=== PATIENT | male | born 1995 | race Two or more races ===

== ENCOUNTER 2019-10-02 14:28 | Emergency (ER) | payer SELFPAY ==
[~2019-10-02] VITALS: Ht 177.8 cm; Wt 59.9 kg
[2019-10-02 14:35] VITALS: BP 124/60
--- NOTE | 2019-10-02 14:35 | NUR ---
ED Nurse Note: Patient walked in to ER from home due to fever. Stated, feels so hot at home but did not checked temp. Patient c/o abdominal pain and diarrhea 2-3 days ago. Patient temp 98.1 at triage, did not take any meds today. Patient has non-labored breathing, O2 sat 98% on RA, AAO x4.
--- NOTE | 2019-10-02 14:44 | Emergency Room Report ---
History of Present Illness General Chief Complaint: Fever Source: Patient Present Illness HPI 24 YO male presents to the emergency department complaining of episodes of intermittent epigastric abdominal pain followed by diarrhea x4 days. Patient reports having hot flashes at home but denies having any measured temperature. Patient states he does not currently have pain at this time however he states when he does have an episode he rates his pain as 5 out of 10 in severity and describes cramping in nature in the epigastric area. He denies nausea or vomiting. He denies blood in the stool or black tarry stools. He denies recent travel or ill contacts with similar symptoms. He states he has been taking Tylenol and Excedrin for his symptoms which have provided him relief. Patient states that he last took medications yesterday. Denies cough, CP, SOB, or wheezing. Denies recent travel. Denies contact with persons who have tested positive for or are under investigation/quarantine for COVID-19. Allergies: Coded Allergies: No Known Allergies (Unverified , 10/02/19) COVID-19 Screening Contact w/high risk pt: No Recent Travel to affected area: No Experienced COVID-19 symptoms?: Yes COVID-19 symptoms experienced: Fever (T>100.4F or >38C) Patient History Past Medical History: see triage record Past Surgical History: none Pertinent Family History: none Reviewed Nursing Documentation: PMH: Agreed; PSxH: Agreed Nursing Documentation-PMH Past Medical History: No Stated History Review of Systems All Other Systems: negative except mentioned in HPI Physical Exam Vital Signs Date Time Temp Pulse Resp B/P (MAP) Pulse Ox O2 Delivery O2 Flow Rate FiO2 10/02/19 14:18 98.1 82 16 124/60 (81) 98 Room Air Sp02 EP Interpretation: reviewed, normal General Appearance: no apparent distress, alert, GCS 15, non-toxic Head: normocephalic, atraumatic Eyes: bilateral eye normal inspection, bilateral eye PERRL ENT: hearing grossly normal, normal voice Neck: full range of motion Respiratory: chest non-tender, lungs clear, normal breath sounds, no respiratory distress, no wheezing, speaking full sentences Cardiovascular #1: regular rate, rhythm, no edema Gastrointestinal: normal bowel sounds, non tender, soft, no peritonitis, non- distended, no guarding Rectal: deferred Musculoskeletal: normal range of motion, gait/station normal, non-tender Neurologic: alert, motor strength/tone normal, oriented x3, sensory intact, responsive, speech normal Psychiatric: judgement/insight normal Skin: normal color Medical Decision Making PA Attestation Dr. Poon is my supervising Physician whom patient management has been discussed with. Diagnostic Impression: Primary Impression: Gastritis Qualified Codes: K29.00 - Acute gastritis without bleeding Additional Impression: Diarrhea Qualified Codes: R19.7 - Diarrhea, unspecified ER Course 24 YO male presents to the emergency department complaining of episodes of intermittent epigastric abdominal pain followed by diarrhea x4 days. Patient reports having hot flashes at home but denies having any measured temperature. Patient states he does not currently have pain at this time however he states when he does have an episode he rates his pain as 5 out of 10 in severity and describes cramping in nature in the epigastric area. He denies nausea or vomiting. He denies blood in the stool or black tarry stools. He denies recent travel or ill contacts with similar symptoms. He states he has been taking Tylenol and Excedrin for his symptoms which have provided him relief. Patient states that he last took medications yesterday. Denies cough, CP, SOB, or wheezing. Denies recent travel. Denies contact with persons who have tested positive for or are under investigation/quarantine for COVID-19. Ddx considered but are not limited to GE, colitis, acute appy, SBO, Cyclical Vomiting secondary to THC, COVID-19, just to name a few. Vital signs: pt. is afebrile, H&PE are most consistent with GE most likely viral in etiology, no evidence to suggest acute abdomen on physical exam. ORDERS: -None required at this time, the dx is clinical. ED INTERVENTIONS: - None at this time. This patient was evaluated in the context of the global COVID-19 pandemic, which necessitated consideration that the patient might be at risk for infection with the SARS-COV-2 virus that causes COVID-19. Institutional protocols and algorithms that pertaining to the evaluation of patients at risk for COVID-19 are in a state of rapid change based on information released by multiple regulatory bodies including the CDC and federal and state organizations. These policies and algorithms were followed during the patient' s care in the emergency department DISCHARGE: At this time pt. is stable for d/c to home. Will provide printed patient care instructions, and any necessary prescriptions. Care plan and follow up instructions have been discussed with the patient prior to discharge. Last Vital Signs Date Time Temp Pulse Resp B/P (MAP) Pulse Ox O2 Delivery O2 Flow Rate FiO2 10/02/19 14:18 98.1 82 16 124/60 (81) 98 Room Air Disposition: HOME, SELF-CARE Condition: Stable Scripts Acetaminophen* (TYLENOL EXTRA STRENGTH*) 500 Mg Tablet 500 MG ORAL Q6H PRN for Mild Pain/Temp > 100.5, #20 TAB 0 Refills Prov: Sherrie Castro 10/02/19 Famotidine* (Pepcid 20mg tablet*) 20 Mg Tablet 20 MG ORAL TWICE A DAY for 7 Days, #14 TAB 0 Refills Prov: Sherrie Castro 10/02/19 Dicyclomine Hcl* (DICYCLOMINE HCL*) 10 Mg Capsule 10 MG ORAL TID, #10 CAP Prov: Sherrie Castro 10/02/19 Referrals: Kalli Bonilla. [facility] Patient Instructions: Viral Gastroenteritis, Adult, [id number] Additional Instructions: ~ ~ An emergent medical condition has not been identified based on this patients presentation, exam and any necessary testing/imaging. The patient is determined to be stable for outpatient follow-up and management of symptoms by a primary care provider. Take medications as directed. Follow up with a Primary Care Provider in 3-5 days, even if your symptoms have resolved. --Please review list of primary care clinics, if you do not already have a primary care provider Return sooner to ED if new symptoms occur, or current symptoms become worse. - Please note that this Emergency Department Report was dictated using [employer] worker technology software, occasionally this can lead to erroneous entry secondary to interpretation by the dictation equipment. Sherrie Castro October 02, 2019 14:44
[2019-10-02] MEDS ORDERED: TYLENOL EXTRA500 MG ORAL (14:45)
[2019-10-02] MEDS ORDERED: FAMOTIDINE20 MG ORAL (14:45)
[2019-10-02] MEDS ORDERED: DICYCLOMINE HCL10 MG ORAL (14:45)
[2019-10-02 14:54] VITALS: BP 124/60
--- NOTE | 2019-10-02 14:55 | NUR ---
ED Nurse Note: Pt cleared by health care Provider for discharge. DC instructions/prescription was given and explained to pt and verbalized understanding of teachings. All medical deviecs such as ID band removed. Pt is AAO x4, ambulatory and left with all personal belongings.
== END 2019-10-02 14:54 | disposition home or self-care (01) ==
LOC: EDBD 14:28 → EMR 14:48
DX: K29.00 Acute gastritis without bleeding (principal); R19.7 Diarrhea, unspecified; R50.9 Fever, unspecified
CPT/HCPCS: 99282